=== PATIENT | male | born 1970 | race Caucasian/White ===

== ENCOUNTER 2019-08-16 14:43 | Emergency (ER) | payer OTHER ==
[~2019-08-16] VITALS: Ht 180.3 cm; Wt 147.7 kg
[~2019-08-16 14:43] MED LIST: IBU800 M1 PO; PRINIVIL10 MG PO; PRINZIDE 25 MG-1 TAB PO; SYNTHROID0.1 MG/TAB; SYNTHROID0.2 MG/TAB PO
[2019-08-16 14:54] VITALS: TEMP 98.7
[2019-08-16 15:41] LABS: PH 7 (5-8); SQUAMOUS EPITHELIAL None Seen /hpf; URINE APPEARANCE Clear; URINE BACTERIA None Seen /hpf; URINE BILIRUBIN Negative (NEGATIVE); URINE BLOOD Negative (NEGATIVE); URINE COLOR Yellow; URINE GLUCOSE Negative (NEGATIVE); URINE KETONE Negative (NEGATIVE); URINE LEUKOCYTE ESTERASE Negative (NEGATIVE); URINE NITRATE Negative (NEGATIVE); URINE PROTEIN(semi-quant) 1+ (NEGATIVE); URINE RBC None Seen /hpf; URINE WBC 0-2 /hpf
[2019-08-16 15:46] LABS: COLLECTION METHOD CLEAN CATCH
[2019-08-16] MEDS ORDERED: MEDROL 4MG DOSPA4 MG PO (15:52)
[2019-08-16 16:05] VITALS: BP 163/104; PULSE 78
== END 2019-08-16 16:05 | disposition home or self-care (01) ==
LOC: COL.ER 14:43
PROVIDERS: Emergency Medicine
DX: M54.5 Low back pain (principal); G89.29 Other chronic pain; I10 Essential (primary) hypertension; E03.9 Hypothyroidism, unspecified

== ENCOUNTER 2023-12-18 18:45 | Emergency (ER) | payer OTHER ==
[~2023-12-18] VITALS: Ht 180.3 cm; Wt 160.0 kg
[~2023-12-18 18:45] MED LIST changes: +MEDROL 4MG DOSPA4 MG PO
[2023-12-18 18:58] VITALS: TEMP 98.9
[2023-12-18 20:38] VITALS: BP 124/101; PULSE 89
== END 2023-12-18 20:54 | disposition home or self-care (01) ==
LOC: COL.ER 18:45
DX: I87.2 Venous insufficiency (chronic) (peripheral) (principal); Z79.899 Other long term (current) drug therapy